=== PATIENT | male | born 1965 | race Two or more races ===

== ENCOUNTER 2024-08-13 20:21 | Emergency (ER) | payer MEDICARE, MEDICAID, SELFPAY ==
[2024-08-13 20:21] VITALS: BMI 17.4
--- NOTE | 2024-08-13 20:28 | EKG_ITS ---
[facility] Test Date: 2024-08-13 Pat Name: ABEL DOUGLASS Department: Room: - Gender: Male Statistical Developer: : 1965 Requested By: ED Temporary Provider Order Number: [id number] Reading MD: ED Temporary Provider Measurements Intervals [place] Rate: 69 P: 87 GA: 126 QRS: -47 QRSD: 114 T: 73 QT: 393 QTc: 421 Interpretive Statements SINUS RHYTHM MARKED LEFT AXIS DEVIATION [QRS AXIS < -30] MODERATE INTRAVENTRICULAR CONDUCTION DELAY [110+ ms QRS DURATION] No previous ECG available for comparison /store/S0/[id number].pdf
[2024-08-13 21:02] VITALS: BP 113/74; PULSE 75; RESP 20; TEMP 36.3; O2SAT 98
--- NOTE | 2024-08-13 21:34 | PD.EDRME ---
Rapid Medical Screening Exam RME Arrival date/time: 08/13/24 20:21 58-year-old male with past medical history of tongue cancer that is currently getting radiation and chemotherapy treatment presents emergency department reporting was told to be evaluated for high potassium. Chief Complaint: General Adult/Misc Complain Time Seen by Provider: 08/13/24 21:29 Vital signs: Vital Signs Temperature 97.4 F 08/13/24 21:02 Pulse Rate 75 08/13/24 21:02 Respiratory Rate 20 08/13/24 21:02 Blood Pressure 113/74 08/13/24 21:02 Pulse Oximetry (%) 98 08/13/24 21:02 Oxygen Delivery Method Room Air 08/13/24 21:02 Vital signs reviewed by provider: Yes
[2024-08-13 22:12] LABS: Basophils # (Auto) 0.1 Thou/mm3 (0.0-0.2); Basophils % (Auto) 1 % (0-2.5); Eosinophils # (Auto) 0.3 Thou/mm3 (0.0-0.5); Eosinophils % (Auto) 5 % (0-10); Hematocrit 39.9 % (41.0-53.0); Hemoglobin 13.5 g/dL (13.5-16.0); Immature Granulocytes % (Auto) 0 % (0-0); Immature Granulocytes Auto 0.01 Thou/mm3 (0.00-0.00); Lymphocytes # (Auto) 0.5 Thou/mm3 (1.0-4.8); Lymphocytes % (Auto) 9 % (10-50); Mean Corpuscular HGB Conc 33.8 g/dl (31.0-37.0); Mean Corpuscular Volume 98 fL (80-100); Monocytes # (Auto) 0.5 Thou/mm3 (0.0-0.8); Monocytes % (Auto) 9 % (0-12); Neutrophils # (Auto) 4.2 Thou/mm3 (1.8-7.7); Neutrophils % (Auto) 76 % (37-80); Nucleated Red Blood Cell % 0 /100 WBC (0); Platelet Count 267 Thou/mm3 (140-440); RDW Standard Deviation 47.7 fL (35.1-43.9); Red Blood Count 4.09 Miln/mm3 (4.50-5.90); White Blood Count 5.5 Thou/mm3 (3.8-10.6)
[2024-08-13 22:25] LABS: B-Type Natriuretic Peptide < 20 pg/mL (0-100)
[2024-08-13 22:27] LABS: Alanine Aminotransferase 14 U/L (10-49); Albumin, Serum 4.4 gm/dL (3.5-5.0); Albumin/Globulin Ratio 1.6 (1.2-2.2); Alkaline Phosphatase 88 U/L (46-116); Anion Gap 9 (7-16); Aspartate Amino Transferase 18 U/L (0-34); BUN/Creatinine Ratio 29 Ratio (12-20); Bilirubin,Total 0.4 mg/dL (0.3-1.2); Blood Urea Nitrogen 26 mg/dL (9-23); Calcium 10.2 mg/dL (8.3-10.6); Calcium (Corrected) 10.2 mg/dL (8.5-10.1); Carbon Dioxide 28.2 mMol/L (20.0-31.0); Chloride 98 mMol/L (98-107); Creatinine (Component) 0.9 mg/dL (0.6-1.3); Estimated Creatinine Clearance 71.7 mL/min (>60); Globulin 2.7 gm/dL (2.3-3.5); Glucose 167 mg/dL (74-106); Magnesium 2.2 mg/dL (1.6-2.6); Osmolality,Calculated 278 (275-295); Potassium 4.2 mMol/L (3.4-5.1); Sodium 135 mMol/L (136-145); Total Protein 7.1 gm/dL (5.7-8.2); Troponin I < 0.002 ng/mL (0.0-0.045); eGFR > 60 See Note
[2024-08-13 22:35] LABS: Partial Thromboplastin Time 29.6 Seconds (22.0-36.0); Prothrombin Time 11.1 Seconds (9.0-12.2)
[2024-08-13 22:56] LABS: Collection Type, Urine Clean Catch; Squamous Epithelial Cell,Urine 0 /hpf (0-5)
--- NOTE | 2024-08-13 23:03 | EDNOTE_ITS ---
<Statement entered by Bertha Navarrete MD - 08/14/24 19:43> As co-signing physician, I was present and available for consult prn. I concur with the plan and care as documented by the midlevel provider. ED General RME/HPI General Chief complaint: General Adult/Misc Complain Stated complaint: PCP SEND FOR HIGH K+ 6.4 Time Seen by Provider: 08/13/24 21:29 Source: patient Arrival date/time: 08/13/24 20:21 58-year-old male with past medical history of tongue cancer that is currently getting radiation and chemotherapy treatment presents emergency department reporting was told to be evaluated for high potassium. Patient denies any symptoms or complaints at this time. Mode of arrival: ambulatory Limitations: no limitations RME / HPI RME / HPI narrative: 08/13/24 20:21 58-year-old male with past medical history of tongue cancer that is currently getting radiation and chemotherapy treatment presents emergency department reporting was told to be evaluated for high potassium. Related Data Home Medications ?Medication ?Instructions ?Recorded ?Confirmed albuterol sulfate 90 mcg/actuation 2 puff inhalation Q6H PRN 02/21/20 03/22/20 aerosol inhaler (Ventolin HFA) Shortness Of Breath Or Wheezing docusate sodium 250 mg capsule 250 mg PO QDAY PRN Constipation 02/21/20 03/22/20 fluticasone propionate 50 1 spray intranasal QDAY 02/21/20 03/22/20 mcg/actuation nasal spray,suspension azelastine 0.05 % eye drops 1 drp ophthalmic (eye) BID 03/22/20 03/22/20 wyfxbqrq-wzmkqnpg-ebzaj acid 400 1 tab PO QDAY 03/22/20 03/22/20 mcg-vit K 20 mcg-lycop 300 mcg tablet (Men's Multivitamin) Previous Rx's ?Medication ?Instructions ?Recorded ferrous sulfate 325 mg (65 mg 325 mg PO BID #120 tabs 03/01/20 iron) tablet Allergies Allergy/AdvReac Type Severity Reaction Status Date / Time Latex, Natural Rubber Allergy Mild Rash Verified 03/22/20 10:45 ibuprofen Allergy BLEEDING Verified 03/22/20 10:45 ULCER Review of Systems Review of Systems Systems Reviewed: All systems reviewed, normal except as documented Constitutional Constitutional: Reports system reviewed and no additional complaints, except as documented, Denies body ache(s), Denies chills and Denies fever(s) Eyes Eyes: Reports system reviewed and no additional complaints, except as documented and Denies change in vision ENT Ears, Nose, Mouth, and Throat: Reports system reviewed and no additional complaints, except as documented, Denies disequilibrium, Denies dizziness, Denies sore throat and Denies vertigo Cardiovascular Cardiovascular: Reports system reviewed and no additional complaints, except as documented, Denies chest pain and Denies dyspnea Respiratory Respiratory: Reports system reviewed and no additional complaints, except as documented, Denies chest congestion, Denies cough and Denies dyspnea Gastrointestinal Gastrointestinal: Reports system reviewed and no additional complaints, except as documented, Denies abdominal pain, Denies nausea and Denies vomiting Musculoskeletal Musculoskeletal: Reports system reviewed and no additional complaints, except as documented, Denies abnormal gait and Denies arthralgias Integumentary/Breasts Skin/Breast: Reports system reviewed and no additional complaints, except as documented, Denies erythema, Denies rash and Denies wounds Neurologic Neurologic: Reports system reviewed and no additional complaints, except as documented, Denies abnormal gait, Denies disequilibrium, Denies dizziness and Denies vertigo Past Medical History Past Medical History NEUROLOGIC: Positive Neurological Disorders and Migraine; Negative Seizures CARDIAC: Positive Cardiac Disorders (HTN) and Hypertension; Negative Congestive Heart Failure RESPIRATORY: Positive Chronic Obstructive Pulmonary Disease (COPD) (?) and Sleep Apnea (? GETTING TESTED); Negative Asthma GASTROINTESTINAL: Positive Gastrointestinal Disorders, Gastrointestinal Bleed and Hiatal Hernia GENITOURINARY: Negative Genitourinary Disorders or Renal Disease MUSCULOSKELETAL: Positive Musculoskeletal Disorders and Arthritis ENDOCRINE: Negative Endocrine Disorders, Diabetes Mellitus Type 1 or Diabetes Mellitus Type 2 HEMATOLOGIC: Negative Sickle Cell Disease OTHER HISTORY: Positive Chicken Pox, Measles and Mumps; Negative Autoimmune Disease, Blood Transfusions, Blood Transfusion Reaction or Anesthesia Reactions Family History FAMILY HISTORY: Positive Family Respiratory Disorders (MOTHER-COPD); Negative Family Cardiac Disorders Surgical History SURGICAL: Positive Abdominal Surgery and Joint Replacement Social History SMOKING STATUS: Former smoker SUBSTANCE USE: marijuana ED Exam General Limitations: Present no limitations General appearance: Present alert and in no apparent distress Head Head exam: Present atraumatic Eye Eye exam: Present normal appearance, PERRL and EOMI ENT ENT exam: Present normal exam, normal oropharynx and mucous membranes moist Neck Neck exam: Present normal inspection, full ROM and trachea midline Chest Chest inspection: Present normal inspection and symmetric chest wall rise Respiratory Respiratory exam: Present normal lung sounds bilaterally Cardiovascular Cardiovascular exam: Present regular rate, normal rhythm and normal heart sounds Abdominal Exam Abdominal exam: Present soft and normal bowel sounds Extremities Exam Extremities exam: Present normal inspection and full ROM Back Exam Back exam: Present normal inspection and full ROM Neurological Exam Neurological exam: Present alert, oriented X3 and CN II-XII intact Psychiatric Psychiatric exam: Present normal affect and normal mood Skin Skin exam: Present warm, dry, intact and normal color Course Quality Measures none Orders Category Date Time Status EKG (ED ONLY) *Do not use* NOW Care 08/13/24 20:28 Completed EKG (ED Only) Stat Exams 08/13/24 20:28 Draft B-Type Natriuretic Peptide Stat Lab 08/13/24 21:44 Completed CBC Stat Lab 08/13/24 21:44 Completed Comprehensive Metabolic Panel Stat Lab 08/13/24 21:44 Completed Magnesium Stat Lab 08/13/24 21:44 Completed Partial Thromboplastin Time Stat Lab 08/13/24 21:44 Completed Prothrombin Time with INR Stat Lab 08/13/24 21:44 Completed Troponin I Stat Lab 08/13/24 21:44 Completed Urinalysis Stat Lab 08/13/24 22:42 Completed Vital Signs Vital signs: Vital Signs Temperature 97.4 F 08/13/24 21:02 Pulse Rate 75 08/13/24 21:02 Respiratory Rate 20 08/13/24 21:02 Blood Pressure 113/74 08/13/24 21:02 Pulse Oximetry (%) 98 08/13/24 21:02 Oxygen Delivery Method Room Air 08/13/24 21:02 98% room air within normal limits Procedures -ED EKG Interpretation #1: Date of EK08/13/24 Time of EK:05 Rate: 69 Interpretation: Interpreted by me EKG Impression: Normal sinus rhythm, No acute ST-T changes, No ectopy, No ischemic changes and Normal QRS MDM Patient data External records reviewed:: [facility] previous records Clinical information provided by:: patient Social determinants that could affect healthcare access:: none Patient has the following chronic illnesses:: See chart How is presenting disease/condition affected by chronic disease/condition?: u neffected by Evaluation data The following diagnostics were reviewed and interpreted by me:: lab results and EKG tracing(s) Lab and/or radiology exams considered but not ordered:: Ordered Interpretation Summary: Interpreted by me Medications Medications considered but not ordered:: N/A Medication administrations:: N/A Consultations Consultation(s) initiated? (list below): No Diagnosis Differential Diagnosis ED Complaint MDM: Hypokalemia, hyperkalemia Most likely diagnosis given after review of the tests above:: Abnormal laboratory test Admission Indicated Admission indicated?: not indicated Explain why admission is indicated or not indicated:: No admission criteria Admission Request Was there a request for admission?: No Disposition Plan Disposition Plan: Discharge Discharge Attestation Discharge Attestation: The patient and all family members were given an opportunity to ask questions and understood the discharge instructions. Discharge instructions specifically effects, indications for sooner follow up or return to the emergency department, and the expected course of current diagnosis. Patient condition: Stable Medical Decision Making MDM Narrative MDM Narrative: 58-year-old male with past medical history of tongue cancer that is currently getting radiation and chemotherapy treatment presents emergency department reporting was told to be evaluated for high potassium. Patient denies any symptoms or complaints at this time. CBC was unremarkable for any leukocytosis. CMP was unremarkable and potassium was 4.2. EKG sinus rhythm. Patient appears nontoxic and is hemodynamically stable. Patient discharged ducted to follow-up with primary care provider to have repeat potassium levels checked in several days. Instructed to return to emergency department for any worsening symptoms or as needed. Differential Diagnosis Differential Diagnosis: Hypokalemia, hyperkalemia Lab Data 08/13/24 21:44 08/13/24 21:44 Labs: Lab Results 08/13/24 08/13/24 Range/Units 21:44 22:42 WBC 5.5 (3.8-10.6) Thou/mm3 RBC 4.09 L (4.50-5.90) Miln/mm3 Hgb 13.5 (13.5-16.0) g/dL Hct 39.9 L (41.0-53.0) % MCV 98 (80-100) fL MCH 33.0 (25.0-35.0) pg MCHC 33.8 (31.0-37.0) g/dl RDW Std Deviation 47.7 H (35.1-43.9) fL Plt Count 267 (140-440) Thou/mm3 Neut % (Auto) 76 (37-80) % Lymph % (Auto) 9 L (10-50) % [place] % (Auto) 9 (0-12) % Eos % (Auto) 5 (0-10) % Baso % (Auto) 1 (0-2.5) % Neut # (Auto) 4.2 (1.8-7.7) Thou/mm3 Lymph # (Auto) 0.5 L (1.0-4.8) Thou/mm3 [place] # (Auto) 0.5 (0.0-0.8) Thou/mm3 Eos # (Auto) 0.3 (0.0-0.5) Thou/mm3 Baso # (Auto) 0.1 (0.0-0.2) Thou/mm3 Immature Gran # (Auto) 0.01 H (0.00-0.00) Thou/mm3 Absolute Nucleated RBC 0.00 (0.00-0.00) Thou/mm3 Immature Gran % 0 (0-0) % Nucleated RBC % 0 (0) /100 WBC PT 11.1 (9.0-12.2) Seconds INR 1.0 (0.9-1.3) APTT 29.6 (22.0-36.0) Seconds Sodium 135 L (136-145) mMol/L Potassium 4.2 (3.4-5.1) mMol/L Chloride 98 (98-107) mMol/L Carbon Dioxide 28.2 (20.0-31.0) mMol/L Anion Gap 9 (7-16) BUN 26 H (9-23) mg/dL Creatinine 0.9 (0.6-1.3) mg/dL Estim Creat Clear Calc 71.7 (>60) mL/min eGFR > 60 (60 - ) See Note BUN/Creatinine Ratio 29 H (12-20) Ratio Glucose 167 H (74-106) mg/dL Calculated Osmolality 278 (275-295) Calcium 10.2 (8.3-10.6) mg/dL Corrected Calcium 10.2 H (8.5-10.1) mg/dL Magnesium 2.2 (1.6-2.6) mg/dL Total Bilirubin 0.4 (0.3-1.2) mg/dL AST 18 (0-34) U/L ALT 14 (10-49) U/L Alkaline Phosphatase 88 (46-116) U/L Troponin I < 0.002 (0.0-0.045) ng/mL B-Natriuretic Peptide < 20 (0-100) pg/mL Total Protein 7.1 (5.7-8.2) gm/dL Albumin 4.4 (3.5-5.0) gm/dL Globulin 2.7 (2.3-3.5) gm/dL Albumin/Globulin Ratio 1.6 (1.2-2.2) Ur Collection Type Clean Catch Urine Color Yellow (Lt Yel-Yel) Urine Clarity Clear (Clear/Hazy) Urine pH 5.0 (5.0-7.0) Ur Specific [place] 1.034 (1.001-1.035) Urine Protein Trace (Neg - Trace) Urine Glucose (UA) Negative (Negative) Urine Ketones Negative (Negative) Urine Blood Negative (Negative) Urine Nitrite Negative (Negative) Urine Bilirubin Negative (Negative) Urine Urobilinogen (Auto) Negative (0.0-1.0) mg/dL Ur Leukocyte Esterase Negative (Negative) Urine RBC 3 (0-3) /hpf Urine WBC 3 (0-5) /hpf Ur Squamous Epith Cells 0 (0-5) /hpf Urine Bacteria None (None) Discharge Plan Plan Patient Disposition: HOME (Self Care) Disposition Comment: Stable Prescriptions/Referrals Prescriptions/Med Rec: No Action docusate sodium 250 mg Capsule 250 mg PO QDAY PRN (Reason: Constipation) albuterol sulfate [Ventolin HFA] 90 mcg/actuation Hfa Aerosol Inhaler 2 puff INHALATION Q6H PRN (Reason: Shortness Of Breath Or Wheezing) fluticasone propionate 50 mcg/actuation [place],Suspension 1 spray INTRANASAL QDAY ferrous sulfate 325 mg (65 mg iron) tablet 325 mg PO BID Qty: 120 0RF Rx Instructions: Be sure to take your iron pills on an empty stomach, with orange juice azelastine 0.05 % Drops 1 drp OPHTHALMIC (EYE) BID Men's Multivitamin 400-20-300 mcg Tablet 1 tab PO QDAY Referrals: Kelvin Mendez PA-C [Primary Care Provider] - In 1 week Problem List Clinical Impression: Abnormal laboratory test Patient/Caregiver Discharge Instructions Discharge Activity: activity as tolerated Additional Instructions: Your potassium was 4.2 today. Follow-up with primary care provider in 2 to 3 days to have repeat potassium check. Return to the emergency department for any worsening symptoms or as needed. Print Language: Polish Stand Alone Forms: Judy Award Info., Patient Portal Info Letter PA/EVENT DECORATOR AND DESIGNER Supervising Physician PA/EVENT DECORATOR AND DESIGNER Supervising Physician: Dr. Navarrete
[2024-08-13 23:18] LABS: Bilirubin,Urine Negative (Negative); Blood,Urine Negative (Negative); Clarity,Urine Clear (Clear/Hazy); Color,Urine Yellow (Lt Yel-Yel); Glucose, Urine Negative (Negative); Ketones,Urine Negative (Negative); Leukocyte Esterase,Urine Negative (Negative); Nitrite,Urine Negative (Negative); Protein,Urine Trace (Neg - Trace); RBC,Urine 3 /hpf (0-3); Specific Gravity,Urine 1.034 (1.001-1.035); Urobilinogen,Urine Negative mg/dL (0.0-1.0); WBC,Urine 3 /hpf (0-5)
== END 2024-08-13 23:14 | disposition home or self-care (01) ==
PROVIDERS: Emergency Provider Emergency Medicine; PCP Physician Assistant Medical
DX: E87.5 Hyperkalemia (principal); I45.89 Other specified conduction disorders
CPT/HCPCS: 36415; 80053; 81001; 83735; 83880; 84484; 85025; 85610; 85730; 93005; 99283